=== PATIENT | male | born 1940 | race Caucasian/White ===

== ENCOUNTER → 2017-01-18 | Outpatient (CLI) | payer MEDICARE, OTHER | END | disposition home or self-care (01) | LOC: GMAB 10:51 | PROVIDERS: ATTEND Family Medicine | DX: E53.8 Deficiency of other specified B group vitamins (principal); D50.9 Iron deficiency anemia, unspecified; Z12.5 Encounter for screening for malignant neoplasm of prostate; I10 Essential (primary) hypertension | CPT/HCPCS: 82607; 82728; 83540; 83550; 84443; G0103 ==

== ENCOUNTER → 2017-04-12 | Outpatient (CLI) | payer MEDICARE, OTHER | END | disposition home or self-care (01) | LOC: GMAB 09:22 | PROVIDERS: ATTEND Family Medicine | DX: N18.4 Chronic kidney disease, stage 4 (severe) (principal) ==

== ENCOUNTER → 2017-04-20 | Outpatient (CLI) | payer MEDICARE, OTHER | END | disposition home or self-care (01) | LOC: GMAB 09:14 | PROVIDERS: ATTEND Family Medicine | DX: N18.4 Chronic kidney disease, stage 4 (severe) (principal) ==

== ENCOUNTER → 2017-06-01 | Outpatient (CLI) | payer MEDICARE, OTHER | END | disposition home or self-care (01) | LOC: GMAB 14:48 | PROVIDERS: ATTEND Family Medicine | DX: R97.20 Elevated prostate specific antigen [PSA] (principal) ==

== ENCOUNTER → 2017-06-21 | Outpatient (CLI) | payer MEDICARE, OTHER | END | disposition home or self-care (01) | LOC: GMAB 11:50 | PROVIDERS: ATTEND Family Medicine | DX: D50.9 Iron deficiency anemia, unspecified (principal) ==

== ENCOUNTER → 2017-08-16 | Outpatient (CLI) | payer MEDICARE, OTHER | END | disposition home or self-care (01) | LOC: GMAB 08:59 | PROVIDERS: ATTEND Family Medicine | DX: D50.9 Iron deficiency anemia, unspecified (principal); N18.4 Chronic kidney disease, stage 4 (severe); E53.8 Deficiency of other specified B group vitamins ==

== ENCOUNTER → 2017-09-14 | Outpatient (CLI) | payer MEDICARE, OTHER | END | disposition home or self-care (01) | LOC: GMAB 10:13 | PROVIDERS: ATTEND Family Medicine | DX: D50.9 Iron deficiency anemia, unspecified (principal); E53.8 Deficiency of other specified B group vitamins ==

== ENCOUNTER → 2017-10-11 | Outpatient (CLI) | payer MEDICARE, OTHER | LOC: GMAB 09:16 | PROVIDERS: ATTEND Family Medicine | DX: N18.4 Chronic kidney disease, stage 4 (severe) (principal); E53.8 Deficiency of other specified B group vitamins; D50.9 Iron deficiency anemia, unspecified ==

== ENCOUNTER → 2017-10-25 | Outpatient (CLI) | payer MEDICARE, OTHER | LOC: GMAB 10:32 | PROVIDERS: ATTEND Family Medicine | DX: D50.9 Iron deficiency anemia, unspecified (principal); E53.8 Deficiency of other specified B group vitamins ==

== ENCOUNTER → 2017-11-05 | Outpatient (CLI) | payer MEDICARE, OTHER | LOC: GMAB 09:32 | PROVIDERS: ATTEND Family Medicine | DX: D50.9 Iron deficiency anemia, unspecified (principal); E53.8 Deficiency of other specified B group vitamins; N18.4 Chronic kidney disease, stage 4 (severe) ==

== ENCOUNTER → 2017-11-22 | Outpatient (CLI) | payer MEDICARE, OTHER | LOC: GMAB 10:35 | PROVIDERS: ATTEND Family Medicine | DX: D50.9 Iron deficiency anemia, unspecified (principal); E53.8 Deficiency of other specified B group vitamins ==

== ENCOUNTER → 2017-12-27 | Outpatient (CLI) | payer MEDICARE, OTHER | LOC: GMAB 10:50 | PROVIDERS: ATTEND Family Medicine | DX: N18.4 Chronic kidney disease, stage 4 (severe) (principal) ==

== ENCOUNTER → 2018-01-11 | Outpatient (CLI) | payer MEDICARE, OTHER | LOC: GMAB 11:22 | PROVIDERS: ATTEND Family Medicine | DX: N18.4 Chronic kidney disease, stage 4 (severe) (principal) ==

== ENCOUNTER → 2018-02-07 | Outpatient (CLI) | payer MEDICARE, OTHER | LOC: GMAB 11:51 | PROVIDERS: ATTEND Family Medicine | DX: N18.4 Chronic kidney disease, stage 4 (severe) (principal) ==

== ENCOUNTER → 2018-02-22 | Outpatient (CLI) | payer MEDICARE, OTHER | LOC: GMAB 10:30 | PROVIDERS: ATTEND Family Medicine | DX: N18.4 Chronic kidney disease, stage 4 (severe) (principal) ==

== ENCOUNTER → 2018-04-04 | Outpatient (CLI) | payer MEDICARE, OTHER | LOC: GMA 11:24 | PROVIDERS: ATTEND Family Medicine | DX: D50.9 Iron deficiency anemia, unspecified (principal); E53.8 Deficiency of other specified B group vitamins ==

== ENCOUNTER → 2018-05-09 | Outpatient (CLI) | payer MEDICARE, OTHER | LOC: GMAE 11:39 | PROVIDERS: ATTEND Family Medicine | DX: N18.4 Chronic kidney disease, stage 4 (severe) (principal); D50.9 Iron deficiency anemia, unspecified; E53.8 Deficiency of other specified B group vitamins ==

== ENCOUNTER 2018-06-15 19:09 | Emergency (ER) | payer MEDICARE, OTHER ==
--- NOTE | 2018-06-15 19:29 | ED.PDOC ---
History of Present Illness - General Chief Complaint: Respiratory Problem Stated Complaint: SOB Time Seen by Provider: 06/15/18 19:28 Source: patient, family - Exam Limitations: no limitations - History of Present Illness Initial Comments: Alfredo Pitts 78 y/o male stated has been having gradual worsening of SOB for the last one week and weight gain of about 17 pounds.Has history of CHF went to see primary Md but advised to come here.Denies chest pains,cough,N/V,abdominal pains. Timing/Duration: 1 week Severity: moderate Improving Factors: nothing Worsening Factors: other - exertion Associated Symptoms: shortness of breath Allergies/Adverse Reactions: Allergies NO KNOWN ALLERGY Allergy (Verified 06/15/18 19:50) Home Medications: Ambulatory Orders Allopurinol [Zyloprim] 200 mg PO DAILY 01/28/14 Aspirin [Aspirin EC] 81 mg PO DAILY 01/28/14 Finasteride 5 mg PO DAILY 01/28/14 Furosemide 40 mg PO DAILY 01/28/14 Gabapentin 600 mg PO BID 01/28/14 Lisinopril 10 mg PO BID 01/28/14 Methylcobalamin [B-12] 1,000 mcg PO BID 01/28/14 Metoprolol Tartrate 25 mg PO BID 01/28/14 Simvastatin 20 mg PO BEDTIME 01/28/14 Tamsulosin [Flomax] 0.4 mg PO HS 01/28/14 Venlafaxine HCl [Venlafaxine HCl ER] 75 mg PO BID 01/28/14 Amlodipine Besylate 5 mg PO DAILY #0 tab 01/31/14 Furosemide [Lasix] 40 mg PO DAILY@1200 06/20/15 Albuterol Inhaler [Ventolin Hfa Inhaler] 1 puff INH TID #1 inh 06/22/15 Insulin Detemir [Levemir Pen] 75 units SUBCU BEDTIME #0 pen 06/22/15 Insulin Detemir [Levemir Pen] 90 units SUBCU DAILY #0 pen 06/22/15 Insulin Regular (Human) [Novolin R] 25 unit SUBCU AC #0 06/22/15 Potassium Chloride [Micro-K] 20 meq PO DAILY #60 cap 06/22/15 Review of Systems - Review of Systems Constitutional: States: no symptoms reported EENTM: States: no symptoms reported Respiratory: States: see HPI Cardiology: States: see HPI Gastrointestinal/Abdominal: States: no symptoms reported Genitourinary: States: no symptoms reported Musculoskeletal: States: no symptoms reported Skin: States: no symptoms reported Neurological: States: no symptoms reported Past Medical History (General) - Patient Medical History Hx Seizures: No Hx Stroke: No Hx Dementia: No Hx Asthma: No Hx of COPD: No Hx Cardiac Disorders: Yes Hx Congestive Heart Failure: Yes Hx Pacemaker: No Hx Hypertension: Yes Hx Thyroid Disease: No Hx Diabetes: Yes Hx Gastroesophageal Reflux: No Hx Renal Disease: Yes Hx Cancer: No Hx of HIV: No Hx Hepatitis C: No Hx MRSA: No Surgical History: other - left knee,cataract - Vaccination History Hx Tetanus, Diphtheria Vaccination: Yes Hx Influenza Vaccination: No Hx Pneumococcal Vaccination: No - Social History Hx Tobacco Use: No Hx Alcohol Use: No Hx Substance Use: No Hx Substance Use Treatment: No Hx Depression: No Hx Physical Abuse: No Hx Emotional Abuse: No Hx Suspected Abuse: No - Activities of Daily Living Patient Lives Alone: No - Female History Patient : No Family Medical History - Family History Mother Family History: Unknown Living Status: Unknown Hx Family Hypertension: Yes - multiple family members Hx Family Diabetes: Yes - multiple family members Physical Exam - Physical Exam General Appearance: Alert, Comfortable, Frail, No apparent distress Eye Exam: bilateral normal Ears, Nose, Throat: hearing grossly normal, normal ENT inspection, normal pharynx Neck: non-tender, full range of motion, supple, normal inspection Respiratory: chest non-tender, no respiratory distress, decreased breath sounds - bases w/minimal rales Cardiovascular/Chest: normal peripheral pulses, regular rate, rhythm, no murmur Peripheral Pulses: radial,right: 2+, radial,left: 2+ Gastrointestinal/Abdominal: non tender, soft Back Exam: no CVA tenderness, no vertebral tenderness Extremity: no calf tenderness, pedal edema Neurologic: alert, oriented x 3 Skin Exam: normal color, warm/dry Progress - Progress Progress: 06/15/18 22:24 Vital Signs - 8 hr 06/15/18 06/15/18 06/15/18 19:15 20:10 21:07 Temperature 97.6 F 97.6 F Pulse Rate [ 95 H 92 H 93 H monitor] Respiratory 20 20 20 Rate Blood Pressure 158/83 159/85 167/91 [Left Arm] O2 Sat by Pulse 99 97 97 Oximetry 06/16/18 00:50 Had Bumex 2mg.IV but urine output noted 400 cc - Results/Orders Results/Orders: 06/15/18 19:29 IV Care:Saline Lock per Protoc QSHIFT 06/15/18 19:30 EKG STAT 06/15/18 22:03 CARDIAC ENZYME GROUP Stat URINE CULTURE W/COLONY COUNT Stat Laboratory Results - last 24 hr 06/15/18 06/15/18 06/15/18 19:50 22:03 22:03 WBC 8.4 RBC 3.67 L Hgb 11.2 L Hct 35.0 L MCV 95.3 H MCH 30.5 MCHC 32.1 L RDW 18.5 H Plt Count 215 MPV 7.5 Absolute Neuts (auto) 6.30 Absolute Lymphs (auto) 1.00 Absolute Monos (auto) 0.60 Absolute Eos (auto) 0.30 Absolute Basos (auto) 0.10 Neutrophils % 75.8 Lymphocytes % 12.4 L Monocytes % 7.5 Eosinophils % 3.4 Basophils % 0.9 PT 9.9 INR 0.99 PTT (SP) 27.6 Sodium 137 Potassium 5.5 H Chloride 109 Carbon Dioxide 16 L Anion Gap 17.5 BUN 91 H Creatinine 5.93 H BUN/Creatinine Ratio 15.3 Random Glucose 176 H Serum Osmolality 306.1 H Calcium 7.3 L Phosphorus Magnesium 1.8 Total Bilirubin 0.4 Direct Bilirubin < 0.1 Indirect Bilirubin 0.3 AST 19 ALT 20 Alkaline Phosphatase 91 Creatine Kinase 228 H* CK-MB (CK-2) 10.4 H* 9.1 H* CK-MB (CK-2) % 4.56 H Troponin I 0.05 0.05 B-Natriuretic Peptide 427.0 H* Serum Total Protein 7.4 Albumin 3.6 Urine Color Yellow Urine Appearance Sl cloudy Urine pH 5.5 Ur Specific [place] 1.020 Urine Protein >=300 H Urine Glucose (UA) 100 H Urine Ketones Negative Urine Blood Small H Urine Nitrite Positive H Urine Bilirubin Negative Urine Urobilinogen 0.2 Ur Leukocyte Esterase Trace H Urine RBC 10-20 H Urine WBC 5-10 H Ur Epithelial Cells 3-5 Urine Bacteria 3+ H 06/15/18 23:18 WBC RBC Hgb Hct MCV MCH MCHC RDW Plt Count MPV Absolute Neuts (auto) Absolute Lymphs (auto) Absolute Monos (auto) Absolute Eos (auto) Absolute Basos (auto) Neutrophils % Lymphocytes % Monocytes % Eosinophils % Basophils % PT INR PTT (SP) Sodium Potassium Chloride Carbon Dioxide Anion Gap BUN Creatinine BUN/Creatinine Ratio Random Glucose Serum Osmolality Calcium Phosphorus 8.5 H Magnesium Total Bilirubin Direct Bilirubin Indirect Bilirubin AST ALT Alkaline Phosphatase Creatine Kinase CK-MB (CK-2) CK-MB (CK-2) % Troponin I B-Natriuretic Peptide Serum Total Protein Albumin Urine Color Urine Appearance Urine pH Ur Specific [place] Urine Protein Urine Glucose (UA) Urine Ketones Urine Blood Urine Nitrite Urine Bilirubin Urine Urobilinogen Ur Leukocyte Esterase Urine RBC Urine WBC Ur Epithelial Cells Urine Bacteria - EKG/XRAY/CT EKG: Sinus, nonspecific ST T wave Chg Comments: HR-95;1o av block XRAY: chest - no acute abnormalities noted Departure - Departure Clinical Impression: Diabetes 1.5, managed as type 1 Acute on chronic kidney failure Qualifiers: Acute renal failure type: unspecified Chronic kidney disease stage: stage 4 ( severe) Qualified Code(s): N17.9 - Acute kidney failure, unspecified Dyspnea Qualifiers: Dyspnea type: unspecified Qualified Code(s): R06.00 - Dyspnea, unspecified Time of Disposition: 00:52 Disposition: Transfer to Hospital Condition: Fair Departure Forms: ED Discharge - Pt. Copy, Patient Portal Self Enrollment Referrals: CHRISTOS FAITH MD [Primary Care Provider] - 1-2 Weeks Home Medications: Ambulatory Orders Allopurinol [Zyloprim] 200 mg PO DAILY 01/28/14 Aspirin [Aspirin EC] 81 mg PO DAILY 01/28/14 Finasteride 5 mg PO DAILY 01/28/14 Furosemide 40 mg PO DAILY 01/28/14 Gabapentin 600 mg PO BID 01/28/14 Lisinopril 10 mg PO BID 01/28/14 Methylcobalamin [B-12] 1,000 mcg PO BID 01/28/14 Metoprolol Tartrate 25 mg PO BID 01/28/14 Simvastatin 20 mg PO BEDTIME 01/28/14 Tamsulosin [Flomax] 0.4 mg PO HS 01/28/14 Venlafaxine HCl [Venlafaxine HCl ER] 75 mg PO BID 01/28/14 Amlodipine Besylate 5 mg PO DAILY #0 tab 01/31/14 Furosemide [Lasix] 40 mg PO DAILY@1200 06/20/15 Albuterol Inhaler [Ventolin Hfa Inhaler] 1 puff INH TID #1 inh 06/22/15 Insulin Detemir [Levemir Pen] 75 units SUBCU BEDTIME #0 pen 06/22/15 Insulin Detemir [Levemir Pen] 90 units SUBCU DAILY #0 pen 06/22/15 Insulin Regular (Human) [Novolin R] 25 unit SUBCU AC #0 06/22/15 Potassium Chloride [Micro-K] 20 meq PO DAILY #60 cap 06/22/15 Transfer to Outside Facility - Transfer Information Accepting Provider:: Dr.Al Torres-Hospitalist Accepting Facility: [facility] Reason for Transfer: 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
--- NOTE | 2018-06-15 19:45 | RAD ---
EXAM DESCRIPTION: Chest,1 View CLINICAL HISTORY:78 years Male, sob Comparison: June 22, 2015 FINDINGS: No focal lung consolidation. Elevation of the right hemidiaphragm. No pleural effusion. No pneumothorax. Cardiac and mediastinal silhouette is unremarkable. No acute osseous abnormality. Soft tissues are unremarkable. IMPRESSION: No acute findings. No focal lung consolidation. Nonspecific elevation the right hemidiaphragm. Electronically signed by: Alessio Damon MD 06/15/2018 7:43 PM CDT
[2018-06-15] MEDS ORDERED: BUMETANIDE 0.25 MG/ML VIAL IV ONE (20:16)
[2018-06-16 01:36] VITALS: BP 118/62; TEMP 97.3; O2SAT 94
== END 2018-06-16 01:10 | disposition short-term general hospital (02) ==
LOC: ER 19:09
DX: R06.00 Dyspnea, unspecified (principal); N17.9 Acute kidney failure, unspecified; E10.22 Type 1 diabetes mellitus with diabetic chronic kidney disease; I13.0 Hypertensive heart and chronic kidney disease with heart failure and stage 1 through stage 4 chronic kidney disease, or unspecified chronic kidney disease; N18.4 Chronic kidney disease, stage 4 (severe); I50.9 Heart failure, unspecified; Z79.4 Long term (current) use of insulin; Z79.899 Other long term (current) drug therapy; Z79.82 Long term (current) use of aspirin
CPT/HCPCS: 36415; 71045; 80048; 80076; 81001; 82550; 82553; 83880; 84100; 84484; 85025; 85610; 85730; 87086; 93005; J3490

== ENCOUNTER → 2018-06-22 | Outpatient (CLI) | payer MEDICARE, OTHER | LOC: GMAE 13:40 | PROVIDERS: ATTEND Family Medicine | DX: D50.9 Iron deficiency anemia, unspecified (principal); E53.8 Deficiency of other specified B group vitamins ==

== ENCOUNTER 2018-07-06 07:09 | Emergency (ER) | payer MEDICARE, OTHER ==
--- NOTE | 2018-07-06 07:32 | ED.PDOC ---
History of Present Illness - General Chief Complaint: General Time Seen by Provider: 07/06/18 07:19 Source: patient, family Exam Limitations: no limitations - History of Present Illness Initial Comments: PT IS A POOR HISTORIAN BUT HIS IS A GOOD HISTORIAN. AT 0700, PT INADVERTENTLY TOOK HIS 'S MORNING MEDS INSTEAD OF HIS OWN. HE DID NOT TAKE HIS OWN. C/O NAUSEA BUT DECLINES OFFER FOR NAUSEA MEDS. NO CP/SOB. HE DID NOT TAKE AN EXCESSIVE QUANTITY (OVERDOSE) OF MEDICATIONS; JUST TOOK 1 DOSE OF THE WRONG ONES. H/O DM, JUST STARTED DIALYSIS APPROX 1 WEEK AGO PETRA BURDEN, SAT IN [place]. HE TOOK: METOPROLOL ER 50 AMLODIPINE 10 LOSARTAN/HCTZ 100/25 METFORMIN 1000 HE DID NOT TAKE HIS MEDS, WHICH CONSIST OF: METOPROLOL 25 BID LISINOPRIL 40 TAMSULOSIN 0.4 SIMVASTATIN 20 VENLAFAXINE ALLOPURINOL FINASTERIDE ASA 81 LEVEMIR 50 INSULIN SLIDING SCALE SO HE TOOK MORE ANTIHYPERTENSIVES THAN USUAL - WILL MONITOR BP. HE TOOK METFORMIN INSTEAD OF INSULIN - WILL MONITOR BLOOD GLUCOSE. HE MISSED A ONE TIME DOSE OF HIS STATIN, EFFEXOR, ALLOPURINOL, FINASTERIDE, ASA 81. WE ARE CALLING POISON CONTROL FOR COMPLETENESS. Timing/Duration: other - [employer] Severity: mild Improving Factors: nothing Worsening Factors: nothing Associated Symptoms: nausea/vomiting Allergies/Adverse Reactions: Allergies NO KNOWN ALLERGY Allergy (Verified 06/15/18 19:50) Home Medications: Ambulatory Orders Allopurinol [Zyloprim] 100 mg PO DAILY 01/28/14 Aspirin [Aspirin EC] 81 mg PO DAILY 01/28/14 Finasteride 5 mg PO DAILY 01/28/14 Lisinopril 40 mg PO BID 01/28/14 Metoprolol Tartrate 25 mg PO BID 01/28/14 Simvastatin 20 mg PO BEDTIME 01/28/14 Tamsulosin [Flomax] 0.4 mg PO HS 01/28/14 Venlafaxine HCl [Venlafaxine HCl ER] 75 mg PO BID 01/28/14 Insulin Detemir [Levemir Pen] 50 units SUBCU BEDTIME 07/06/18 Review of Systems - Review of Systems Constitutional: Denies: chills, diaphoresis, fever, malaise EENTM: Denies: blurred vision, double vision, throat pain Respiratory: Denies: cough, short of breath Cardiology: Denies: chest pain, palpitations Gastrointestinal/Abdominal: States: nausea. Denies: abdominal pain, constipation, diarrhea, vomiting Genitourinary: Denies: dysuria, hematuria Musculoskeletal: States: no symptoms reported Skin: States: no symptoms reported Neurological: States: no symptoms reported. Denies: headache, weakness Endocrine: States: no symptoms reported. Denies: excessive sweating Hematologic/Lymphatic: States: no symptoms reported All other Systems: Reviewed and Negative Past Medical History (General) - Patient Medical History Hx Seizures: No Hx Stroke: No Hx Dementia: No Hx Asthma: No Hx of COPD: No Hx Cardiac Disorders: Yes Hx Congestive Heart Failure: Yes Hx Pacemaker: No Hx Hypertension: Yes Hx Thyroid Disease: No Hx Diabetes: Yes Hx Gastroesophageal Reflux: No Hx Renal Disease: Yes Hx Cancer: No Hx of HIV: No Hx Hepatitis C: No Hx MRSA: No - Vaccination History Hx Tetanus, Diphtheria Vaccination: Yes Hx Influenza Vaccination: No Hx Pneumococcal Vaccination: No - Social History Hx Tobacco Use: No Hx Alcohol Use: No Hx Substance Use: No Hx Substance Use Treatment: No Hx Depression: No Hx Physical Abuse: No Hx Emotional Abuse: No Hx Suspected Abuse: No - Female History Patient : No Family Medical History - Family History Mother Family History: Unknown Living Status: Unknown Hx Family Hypertension: Yes - multiple family members Hx Family Diabetes: Yes - multiple family members Physical Exam - Physical Exam General Appearance: Alert, Obese Eye Exam: bilateral normal Ears, Nose, Throat: hearing grossly normal, normal ENT inspection Neck: non-tender, full range of motion, supple Respiratory: lungs clear, normal breath sounds, no respiratory distress Cardiovascular/Chest: normal peripheral pulses, regular rate, rhythm, no murmur Peripheral Pulses: radial,right: 2+, radial,left: 2+ Gastrointestinal/Abdominal: normal bowel sounds, non tender, soft, no organomegaly, no pulsatile mass Back Exam: normal inspection, no CVA tenderness Extremity: normal range of motion, normal inspection 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 HE HAS A PORT ON THE RIGHT SIDE OF HIS CHEST. Lymphatic: no adenopathy Progress - Progress Progress: 07/06/18 07:32 INITIAL SBP 190'S, NOW 160'S. SO HE TOOK MORE ANTIHYPERTENSIVES THAN USUAL - WILL MONITOR BP. HE TOOK METFORMIN INSTEAD OF INSULIN - WILL MONITOR BLOOD GLUCOSE. HE MISSED A ONE TIME DOSE OF HIS STATIN, EFFEXOR, ALLOPURINOL, FINASTERIDE, ASA 81. WE ARE CALLING POISON CONTROL FOR COMPLETENESS. POISON CONTROL HAD NO SERIOUS CONCERNS; JUST MONITOR HIS BP AND GLUCOSE. 07/06/18 07:39 EKG SINUS W/ PVC AND PROLONGED QT INTERVAL. 07/06/18 08:43 MONITORING BP AND GLUCOSE: BP 130'S. GLUCOSE 226. VSS. NO CONCERNS AT PRESENT. PT IS STABLE. 07/06/18 10:17 NO UNEXPECTED OR CONCERNING LABS ON CBC, CMP, UA. CR ELEVATED EXPECTED. REPEAT GLUCOSE 271 - PERMISSIVE HYPERGLYCEMIA IN THE ER TO AVOID ACUTE HYPOGLYCEMIA. NO HYPOTENSION. PT WAS MONITORED IN ER FOR APPROX 3 HRS AND THERE WERE NO MEDICAL CONCERNS. SAFE TO DC TO HOME WITH HIS . SHE IS HIS DIRECTOR BEHAVIORAL HEALTH AND I INSTRUCTED HER TO CHECK HIS BP AND GLUCOSE 4 X TODAY. Departure - Departure Clinical Impression: IDDM (insulin dependent diabetes mellitus) Accidental medication error Qualifiers: Encounter type: initial encounter Qualified Code(s): T50.901A - Poisoning by unspecified drugs, medicaments and biological substances, accidental ( unintentional), initial encounter CRF (chronic renal failure) Qualifiers: Chronic kidney disease stage: stage 4 (severe) Qualified Code(s): N18.4 - Chronic kidney disease, stage 4 (severe) Disposition: Discharge to Home or Self Care Condition: Fair Departure Forms: ED Discharge - Pt. Copy, Patient Portal Self Enrollment Instructions: Medication Safety, Adult Diet: resume usual diet Activity: increase activity as tolerated Referrals: CHRISTOS FAITH MD [Primary Care Provider] - 1-5 Days Home Medications: Ambulatory Orders Allopurinol [Zyloprim] 100 mg PO DAILY 01/28/14 Aspirin [Aspirin EC] 81 mg PO DAILY 01/28/14 Finasteride 5 mg PO DAILY 01/28/14 Lisinopril 40 mg PO BID 01/28/14 Metoprolol Tartrate 25 mg PO BID 01/28/14 Simvastatin 20 mg PO BEDTIME 01/28/14 Tamsulosin [Flomax] 0.4 mg PO HS 01/28/14 Venlafaxine HCl [Venlafaxine HCl ER] 75 mg PO BID 01/28/14 Insulin Detemir [Levemir Pen] 50 units SUBCU BEDTIME 07/06/18 Additional Instructions: Please be cautious with medications. Perhaps label the bottle tops with a colored marker to distinguish which are his. Please check his blood sugar 4 times throughout the rest of the day to ensure it does not run too high or too low.
[2018-07-06 07:36] VITALS: TEMP 98.6
[2018-07-06 10:34] VITALS: BP 205/105; O2SAT 96
== END 2018-07-06 10:34 | disposition home or self-care (01) ==
LOC: ER 07:09
DX: T38.3X1A Poisoning by insulin and oral hypoglycemic [antidiabetic] drugs, accidental (unintentional), initial encounter (principal); T46.1X1A Poisoning by calcium-channel blockers, accidental (unintentional), initial encounter; T47.7X1A Poisoning by emetics, accidental (unintentional), initial encounter; R11.0 Nausea; E11.22 Type 2 diabetes mellitus with diabetic chronic kidney disease; N18.4 Chronic kidney disease, stage 4 (severe); I50.9 Heart failure, unspecified; I12.9 Hypertensive chronic kidney disease with stage 1 through stage 4 chronic kidney disease, or unspecified chronic kidney disease; Z79.4 Long term (current) use of insulin; Z99.2 Dependence on renal dialysis; Z79.899 Other long term (current) drug therapy; Z79.82 Long term (current) use of aspirin

== ENCOUNTER 2018-07-09 12:05 | Emergency (ER) | payer MEDICARE, OTHER ==
--- NOTE | 2018-07-09 12:16 | ED.PDOC ---
History of Present Illness - General Chief Complaint: General Time Seen by Provider: 07/09/18 12:12 Source: patient, EMS Exam Limitations: no limitations - History of Present Illness Initial Comments: Patient comes in todaypatient comes in today for not feeling well. Patient was going to take his normal dialysis when he told the nurses there that he wasn't feeling well. After taking his vital signs they noted his heart rate was in the 140s and they called EMS. On arrival EMS states he had atrial fibrillation with rapid ventricular response at 131. However, prior to receiving any medication converted back to normal sinus rhythm with a heart rate in the 70s. Patient states since his heart rate has decreased he does feel better. On questioning, patient cannot quantify what he was feeling earlier. Patient states he just didn't feel well but denies any pain, fever, chills, cough or cold symptoms. Patient has a past medical history for hypertension, hyperlipidemia, diabetes mellitus, and chronic renal failure. Patient states he 's never had a heart history and does not believe he's been in atrial fibrillation. Patient has never had a stroke, emphysema, asthma, or other medical problems. Patient is very stoic and surly and is a difficult historian. Timing/Duration: 1-3 hours Severity: moderate Improving Factors: nothing Worsening Factors: nothing Associated Symptoms: weakness Allergies/Adverse Reactions: Allergies NO KNOWN ALLERGY Allergy (Verified 06/15/18 19:50) Home Medications: Ambulatory Orders Allopurinol [Zyloprim] 100 mg PO DAILY 01/28/14 Aspirin [Aspirin EC] 81 mg PO DAILY 01/28/14 Finasteride 5 mg PO DAILY 01/28/14 Lisinopril 40 mg PO DAILY 01/28/14 Metoprolol Tartrate 25 mg PO BID 01/28/14 Simvastatin 20 mg PO BEDTIME 01/28/14 Tamsulosin [Flomax] 0.4 mg PO HS 01/28/14 Venlafaxine HCl [Venlafaxine HCl ER] 75 mg PO DAILY 01/28/14 Insulin Detemir [Levemir Pen] 60 units SUBCU BID 07/06/18 B-Complex W/ C & Folic Acid [Renal-Jama[place] 0.8 mg] 1 tablet PO DAILY 07/09/18 Insulin Lispro (Human) [Humalog] 5 units SUBCU BID 07/09/18 Quetiapine Fumarate [Quetiapine Fumarate] 50 mg PO BID 07/09/18 Trazodone HCl 50 mg PO BEDTIME 07/09/18 Review of Systems - Review of Systems Constitutional: States: malaise, weakness EENTM: States: no symptoms reported. Denies: eye pain, ear pain, nose pain, nose congestion, throat pain Respiratory: States: no symptoms reported. Denies: cough, short of breath, wheezing Cardiology: States: palpitations Gastrointestinal/Abdominal: States: no symptoms reported. Denies: abdominal pain, nausea, vomiting Genitourinary: States: no symptoms reported Musculoskeletal: States: no symptoms reported Skin: States: no symptoms reported Past Medical History (General) - Patient Medical History Hx Seizures: No Hx Stroke: No Hx Dementia: No Hx Asthma: No Hx of COPD: No Hx Cardiac Disorders: Yes Hx Congestive Heart Failure: Yes Hx Pacemaker: No Hx Hypertension: Yes Hx Thyroid Disease: No Hx Diabetes: Yes Hx Gastroesophageal Reflux: No Hx Renal Disease: Yes Hx Cancer: No Hx of HIV: No Hx Hepatitis C: No Hx MRSA: No - Vaccination History Hx Tetanus, Diphtheria Vaccination: Yes Hx Influenza Vaccination: No Hx Pneumococcal Vaccination: No - Social History Hx Tobacco Use: No Hx Alcohol Use: No Hx Substance Use: No Hx Substance Use Treatment: No Hx Depression: No Hx Physical Abuse: No Hx Emotional Abuse: No Hx Suspected Abuse: No - Female History Patient : No Family Medical History - Family History Mother Family History: Unknown Living Status: Unknown Hx Family Hypertension: Yes - multiple family members Hx Family Diabetes: Yes - multiple family members Physical Exam - Physical Exam General Appearance: Alert, No apparent distress Eye Exam: bilateral normal Ears, Nose, Throat: hearing grossly normal, normal ENT inspection, normal pharynx Neck: non-tender, full range of motion, supple, normal inspection Respiratory: chest non-tender, lungs clear, normal breath sounds, no respiratory distress Cardiovascular/Chest: normal peripheral pulses, regular rate, rhythm, no edema, no gallop, no JVD, no murmur Peripheral Pulses: radial,right: 2+, radial,left: 2+ Gastrointestinal/Abdominal: normal bowel sounds, non tender, soft Back Exam: no CVA tenderness, no vertebral tenderness Extremity: non-tender, no pedal edema Neurologic: alert, oriented x 3 Progress - Progress Progress: patient is feeling better. 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 He declines to accept transfer at this time as he feels that he does not require emergent evaluation. Requests for us to recheck enzymes again in several hours. If it is trending up then we are to transfer him, if same or decrease we should discharge on Toprol XL 25 mg and have him follow up as outpatient. 07/09/18 13:39 07/09/18 13:52 patient will miss dialysis secondary to ER stay. called and spoke to Nephrology through [facility] at dialysis and Dr. Burnham feelsl like if he is not fluid overloaded he can wait until Wednesday. They will call and arrange a time with family. and children understand if he goes home and then has swelling , SOB they should come back in and have him emergently transferred for dialysis. 07/09/18 16:27 recheck was 0.9. will discharge home and have him follow up with cardiology as planned next week. Return to ER for chest pain, return of increase in heart rate, shortness of breath - Results/Orders Results/Orders: 07/09/18 12:15 EKG STAT Laboratory Results WBC 12.8 K/mm3 (4.8-10.8) H 07/09/18 12:21 RBC 4.00 M/mm3 (4.70-6.10) L 07/09/18 12:21 Hgb 11.7 gm/dL (14.0-18.0) L 07/09/18 12:21 Hct 36.6 % (42.0-52.0) L 07/09/18 12:21 MCV 91.5 fl (80.0-94.0) 07/09/18 12:21 MCH 29.2 pg (27.0-31.0) 07/09/18 12:21 MCHC 32.1 g/dL (33.0-37.0) L 07/09/18 12:21 RDW 16.8 % (11.5-14.5) H 07/09/18 12:21 Plt Count 214 K/mm3 (130-400) 07/09/18 12:21 MPV 9.0 fl (7.40-10.4) 07/09/18 12:21 Absolute Neuts (auto) 10.40 K/uL (1.8-6.8) H 07/09/18 12:21 Absolute Lymphs (auto) 1.20 K/uL (1.0-3.4) 07/09/18 12:21 Absolute Monos (auto) 0.80 K/uL (0.2-0.8) 07/09/18 12:21 Absolute Eos (auto) 0.20 K/uL (0.0-0.4) 07/09/18 12:21 Absolute Basos (auto) 0.10 K/uL (0.0-0.1) 07/09/18 12:21 Neutrophils % 81.7 % (42.0-78.0) H 07/09/18 12:21 Lymphocytes % 9.5 % (20.0-50.0) L 07/09/18 12:21 Monocytes % 6.5 % (2.0-9.0) 07/09/18 12:21 Eosinophils % 1.9 % (1.0-5.0) 07/09/18 12:21 Basophils % 0.4 % (0.0-2.0) 07/09/18 12:21 PT 9.9 SECONDS (9.0-10.9) 07/09/18 12:21 INR 0.99 (0.9-1.15) 07/09/18 12:21 PTT (SP) 22.7 SECONDS (21.8-31.6) 07/09/18 12:21 Sodium 134 mmol/L (135-145) L 07/09/18 12:21 Potassium 3.3 mmol/L (3.6-5.0) L 07/09/18 12:21 Chloride 95 mmol/L (101-111) L 07/09/18 12:21 Carbon Dioxide 27 mmol/L (21-31) 07/09/18 12:21 Anion Gap 15.3 (12-18) 07/09/18 12:21 BUN 35 mg/dL (7-18) H 07/09/18 12:21 Creatinine 4.15 mg/dL (0.6-1.3) H 07/09/18 12:21 BUN/Creatinine Ratio 8.4 (10-20) L 07/09/18 12:21 Random Glucose 213 mg/dL (70-105) H 07/09/18 12:21 Serum Osmolality 282.6 mOsm/L (275-295) 07/09/18 12:21 Calcium 8.1 mg/dL (8.4-10.2) L 07/09/18 12:21 Magnesium 1.6 mg/dL (1.8-2.5) L 07/09/18 12:21 Creatine Kinase 218 IU/L (38-174) H* 07/09/18 12:21 CK-MB (CK-2) 4.9 ng/mL (0.0-4.4) H* 07/09/18 12:21 CK-MB (CK-2) % 2.25 % (0.0-3.5) 07/09/18 12:21 Troponin I 0.08 ng/mL (0.01-0.05) H* 07/09/18 12:21 EKG NSR with prolinged T and incomplete RBBB Departure - Departure Clinical Impression: Atrial fibrillation Qualifiers: Atrial fibrillation type: unspecified Qualified Code(s): I48.91 - Unspecified atrial fibrillation Disposition: Discharge to Home or Self Care Departure Forms: ED Discharge - Pt. Copy, Patient Portal Self Enrollment Referrals: CHRISTOS FAITH MD [Primary Care Provider] - 1-2 Weeks Home Medications: Ambulatory Orders Allopurinol [Zyloprim] 100 mg PO DAILY 01/28/14 Aspirin [Aspirin EC] 81 mg PO DAILY 01/28/14 Finasteride 5 mg PO DAILY 01/28/14 Lisinopril 40 mg PO DAILY 01/28/14 Metoprolol Tartrate 25 mg PO BID 01/28/14 Simvastatin 20 mg PO BEDTIME 01/28/14 Tamsulosin [Flomax] 0.4 mg PO HS 01/28/14 Venlafaxine HCl [Venlafaxine HCl ER] 75 mg PO DAILY 01/28/14 Insulin Detemir [Levemir Pen] 60 units SUBCU BID 07/06/18 B-Complex W/ C & Folic Acid [Renal-[place] 0.8 mg] 1 tablet PO DAILY 07/09/18 Insulin Lispro (Human) [Humalog] 5 units SUBCU BID 07/09/18 Quetiapine Fumarate [Quetiapine Fumarate] 50 mg PO BID 07/09/18 Trazodone HCl 50 mg PO BEDTIME 07/09/18 Additional Instructions: patient to call cardiology on Wednesday and arrange follow up. Return to ER for chest pain, shortness of breath, or increased heart rate
--- NOTE | 2018-07-09 12:34 | RAD ---
EXAM DESCRIPTION: Chest,1 View CLINICAL HISTORY: 78 years Male, Afib new onset COMPARISON: June 15, 2018. FINDINGS: Heart size appears upper normal, although accentuated by technique. There appears to be calcification in the aortic arch. Slight patient rotation to the left. The lungs appear essentially clear and unchanged compared to the previous study considering technical differences, with note of better definition of the right hemidiaphragm. Since the last exam, there has been placement of a double-lumen right jugular catheter, the tip of which overlies the lower superior vena cava. No gross evidence of pneumothorax on this upright portable film. IMPRESSION: No evidence of acute cardiopulmonary disease. Status post central venous catheter placement. Electronically signed by: Dimitri Maguire MD 07/09/2018 12:33 PM COPY EDITOR
[2018-07-09] MEDS ORDERED: ATORVASTATIN 20 MG TAB PO ONE (12:54)
[2018-07-09] MEDS ORDERED: METOPROLOL SUCCINATE XL 25 MG TAB PO ONE (12:54)
[2018-07-09] MEDS ORDERED: ASPIRIN (CHEWABLE) 81 MG TAB PO ONE (12:54)
[2018-07-09] MEDS ORDERED: HEPARIN SODIUM (PORCINE) 5,000 U/ML VIAL IV ONE (12:54)
[2018-07-09 17:04] VITALS: BP 173/91; O2SAT 96
[2018-07-09 17:07] VITALS: TEMP 98
== END 2018-07-09 16:35 | disposition home or self-care (01) ==
LOC: ER 12:05
DX: I48.91 Unspecified atrial fibrillation (principal); N18.6 End stage renal disease; I13.2 Hypertensive heart and chronic kidney disease with heart failure and with stage 5 chronic kidney disease, or end stage renal disease; E11.9 Type 2 diabetes mellitus without complications; I50.9 Heart failure, unspecified; E78.5 Hyperlipidemia, unspecified; Z99.2 Dependence on renal dialysis; Z79.82 Long term (current) use of aspirin; Z79.899 Other long term (current) drug therapy; Z79.4 Long term (current) use of insulin
CPT/HCPCS: 36415; 71045; 80048; 82550; 82553; 84484; 85025; 85610; 85730; 93005; J1644

== ENCOUNTER 2018-07-14 23:53 | Emergency (ER) | payer MEDICARE, OTHER ==
[2018-07-15] MEDS ORDERED: SODIUM CHLORIDE 0.9% (FLUSH) 10 ML SYG IV PRN (00:19)
--- NOTE | 2018-07-15 00:30 | ED.PDOC ---
History of Present Illness - General Chief Complaint: Respiratory Problem Stated Complaint: short of breath Time Seen by Provider: 07/15/18 00:00 Source: patient, family - Exam Limitations: no limitations - History of Present Illness Initial Comments: Alfredo Pitts 78 y/o male with history of ESRD-HD,DM2 on insulin brought by EMS to ER with SOB,not feeling well,unable to lay flat, but no chest pains, fever cough.Seen here last week with [facility] cardiac enzymes were slightly elevated Trop-0.09 x2 and also called up senior environmental consultant but since his cardiac enzymes no further elevation of troponin no transfer made patient sent home..Had just started hemodialysis thru [facility] cath 2 weeks ago had one done today and goes 3 x a week [facility].EMS stated Sao2-97 % RA on the ambulance no signs of distress. Timing/Duration: 1 week, intermittent Severity: moderate Activities at Onset: none Possible Cause: occasional episodes, other - renal failure and chf Improving Factors: nothing Worsening Factors: nothing Associated Symptoms: other - see hpi Respiratory Risk Factors: other - ESRD-HD,renal failure Allergies/Adverse Reactions: Allergies NO KNOWN ALLERGY Allergy (Verified 06/15/18 19:50) Home Medications: Ambulatory Orders Allopurinol [Zyloprim] 100 mg PO DAILY 01/28/14 Aspirin [Aspirin EC] 81 mg PO DAILY 01/28/14 Finasteride 5 mg PO DAILY 01/28/14 Lisinopril 40 mg PO DAILY 01/28/14 Metoprolol Tartrate 25 mg PO BID 01/28/14 Simvastatin 20 mg PO BEDTIME 01/28/14 Tamsulosin [Flomax] 0.4 mg PO HS 01/28/14 Venlafaxine HCl [Venlafaxine HCl ER] 75 mg PO DAILY 01/28/14 Insulin Detemir [Levemir Pen] 60 units SUBCU BID 07/06/18 B-Complex W/ C & Folic Acid [Renal-[place] 0.8 mg] 1 tablet PO DAILY 07/09/18 Insulin Lispro (Human) [Humalog] 5 units SUBCU BID 07/09/18 Metoprolol Succinate [Toprol Xl] 25 mg PO DAILY #30 tab 07/09/18 Quetiapine Fumarate [Quetiapine Fumarate] 50 mg PO BID 07/09/18 Trazodone HCl 50 mg PO BEDTIME 07/09/18 Multiple Vitamins W/ Minerals [Dialyvite 800/Ultra D] 1 tab PO DAILY 07/15/18 Temazepam [Restoril] 15 mg PO BEDTIME 07/15/18 Review of Systems - Review of Systems Constitutional: States: no symptoms reported EENTM: States: no symptoms reported Respiratory: States: see HPI Cardiology: States: no symptoms reported Gastrointestinal/Abdominal: States: no symptoms reported Genitourinary: States: see HPI Musculoskeletal: States: no symptoms reported Skin: States: no symptoms reported Neurological: States: no symptoms reported Past Medical History (General) - Patient Medical History Hx Seizures: No Hx Stroke: No Hx Dementia: Yes Hx Asthma: No Hx of COPD: No Hx Cardiac Disorders: Yes Hx Congestive Heart Failure: Yes Hx Pacemaker: No Hx Hypertension: Yes Hx Thyroid Disease: No Hx Diabetes: Yes Hx Gastroesophageal Reflux: No Hx Renal Disease: Yes - on dialysis Hx Cancer: No Hx of HIV: No Hx Hepatitis C: No Hx MRSA: No Surgical History: other - left knee,cataract - Vaccination History Hx Tetanus, Diphtheria Vaccination: Yes Hx Influenza Vaccination: No Hx Pneumococcal Vaccination: No - Social History Hx Tobacco Use: No Hx Alcohol Use: No Hx Substance Use: No Hx Substance Use Treatment: No Hx Depression: No Hx Physical Abuse: No Hx Emotional Abuse: No Hx Suspected Abuse: No - Female History Patient is a Female of Child Bearing Age (10 -59 yrs old): No Patient : No Family Medical History - Family History Mother Family History: Unknown Living Status: Unknown Hx Family Hypertension: Yes - multiple family members Hx Family Diabetes: Yes - multiple family members Physical Exam - Physical Exam General Appearance: Alert, Comfortable, No apparent distress Eyes, Ears, Nose, Throat Exam: normal ENT inspection Neck: full range of motion, supple, normal inspection Respiratory: chest non-tender, lungs clear, normal breath sounds, no respiratory distress Cardiovascular/Chest: normal peripheral pulses, no gallop, no murmur, irregularly irregular Peripheral Pulses: radial,right: 2+, radial,left: 2+ Gastrointestinal/Abdominal: non tender, soft, no organomegaly Extremity: normal range of motion, non-tender, no pedal edema, no calf tenderness Neurologic: alert, oriented x 3 Skin Exam: normal color, warm/dry Progress - Progress Progress: 07/15/18 00:43 Vital Signs - 8 hr 07/15/18 07/15/18 00:08 00:36 Temperature 97.8 F Pulse Rate [ 67 left] Respiratory 20 20 Rate Blood Pressure 189/93 [left] O2 Sat by Pulse 100 Oximetry 07/15/18 04:31 He was agitated and given 2 doses of haldol,Lorazepam 1mg iv,Alprazolam 2 mg po w/c calmed him down. - Results/Orders Results/Orders: Vital Signs - 8 hr 07/15/18 07/15/18 07/15/18 00:08 00:36 01:25 Temperature 97.8 F 97.8 F Pulse Rate [ 67 76 left] Respiratory 20 20 20 Rate Blood Pressure 189/93 177/63 [left] O2 Sat by Pulse 100 99 Oximetry 07/15/18 07/15/18 07/15/18 02:30 02:58 03:21 Temperature Pulse Rate [ 92 H 92 H 88 left] Respiratory 20 20 Rate Blood Pressure 175/71 185/87 [left] O2 Sat by Pulse 99 99 Oximetry 07/15/18 03:48 Temperature Pulse Rate [ 63 left] Respiratory 20 Rate Blood Pressure 171/62 [left] O2 Sat by Pulse 96 Oximetry - EKG/XRAY/CT EKG: Atrial, Fibrillation Comments: HR-72 XRAY: chest - mild pulmonary congestion Departure - Departure Clinical Impression: ESRD (end stage renal disease) on dialysis, Diabetes 1.5, managed as type 1, Hypokalemia Congestive heart failure (CHF) Qualifiers: Heart failure type: unspecified Heart failure chronicity: unspecified Qualified Code(s): I50.9 - Heart failure, unspecified Time of Disposition: 04:26 Disposition: Transfer to Hospital Condition: Fair Departure Forms: Patient Portal Self Enrollment Referrals: CHRISTOS FAITH MD [Primary Care Provider] - 1-2 Weeks Home Medications: Ambulatory Orders Allopurinol [Zyloprim] 100 mg PO DAILY 01/28/14 Aspirin [Aspirin EC] 81 mg PO DAILY 01/28/14 Finasteride 5 mg PO DAILY 01/28/14 Lisinopril 40 mg PO DAILY 01/28/14 Metoprolol Tartrate 25 mg PO BID 01/28/14 Simvastatin 20 mg PO BEDTIME 01/28/14 Tamsulosin [Flomax] 0.4 mg PO HS 01/28/14 Venlafaxine HCl [Venlafaxine HCl ER] 75 mg PO DAILY 01/28/14 Insulin Detemir [Levemir Pen] 60 units SUBCU BID 07/06/18 B-Complex W/ C & Folic Acid [Renal-[place] 0.8 mg] 1 tablet PO DAILY 07/09/18 Insulin Lispro (Human) [Humalog] 5 units SUBCU BID 07/09/18 Metoprolol Succinate [Toprol Xl] 25 mg PO DAILY #30 tab 07/09/18 Quetiapine Fumarate [Quetiapine Fumarate] 50 mg PO BID 07/09/18 Trazodone HCl 50 mg PO BEDTIME 07/09/18 Multiple Vitamins W/ Minerals [Dialyvite 800/Ultra D] 1 tab PO DAILY 07/15/18 Temazepam [Restoril] 15 mg PO BEDTIME 07/15/18 Transfer to Outside Facility - Transfer Information Accepting Provider:: Dr. Guerrero-Hospitalist Accepting Facility: [facility] Reason for Transfer: required specialist not available - senior environmental consultant
[2018-07-15] MEDS ORDERED: hydrALAZINE HCl 20 MG/ML VIAL IV ONE (00:33)
--- NOTE | 2018-07-15 00:33 | RAD ---
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 Mild pulmonary edema. No large pleural effusion. Mild cardiomegaly. Impression: Mild pulmonary edema. Electronically signed by: Bora Jose MD 07/15/2018 12:32 AM [employer] WORK[employer] SUPERVISOR
[2018-07-15] MEDS ORDERED: HALOPERIDOL LACTATE INJ 5 MG/ML VIAL IM ONE ×3 (01:19→02:39)
[2018-07-15] MEDS ORDERED: diphenhydrAMINE HCL 50 MG/ML VIAL IV ONE ×2 (01:21)
[2018-07-15] MEDS ORDERED: POTASSIUM CHLORIDE ELIXIR 20 MEQ/15 ML UD PO ONE (01:22)
[2018-07-15] MEDS ORDERED: ASPIRIN (CHEWABLE) 81 MG TAB PO ONE (02:16)
[2018-07-15] MEDS ORDERED: ALPRAZolam 0.25 MG TAB PO ONE (02:39)
[2018-07-15 03:49] VITALS: O2SAT 96
[2018-07-15 04:56] VITALS: BP 144/63; TEMP 97.1
== END 2018-07-15 04:50 | disposition short-term general hospital (02) ==
LOC: ER 23:53
DX: I50.9 Heart failure, unspecified (principal); E10.22 Type 1 diabetes mellitus with diabetic chronic kidney disease; N18.6 End stage renal disease; I13.2 Hypertensive heart and chronic kidney disease with heart failure and with stage 5 chronic kidney disease, or end stage renal disease; Z99.2 Dependence on renal dialysis; F03.90 Unspecified dementia, unspecified severity, without behavioral disturbance, psychotic disturbance, mood disturbance, and anxiety; Z79.82 Long term (current) use of aspirin; Z79.4 Long term (current) use of insulin; Z79.899 Other long term (current) drug therapy
CPT/HCPCS: 71045; 80048; 80076; 82550; 82553; 82948; 83605; 83880; 84484; 85025; 85610; 85730; 93005; J0360; J1200; J1630; J2060

== ENCOUNTER 2018-08-10 14:35 | Inpatient (IN) | payer OTHER ==
--- NOTE | 2018-08-10 15:14 | HP ---
SUPERVISING PHYSICIAN: Nany Norton MD REASON FOR HOSPICE ADMISSION: 1. Endstage renal disease. 2. Severe confusion and dementia. HISTORY OF PRESENT ILLNESS: Mr. Pitts is a 78-year-old male patient who initially presented to [facility] on 07/31/18 after he had a same- level fall and had some agitation, dementia and endstage renal disease. He was started on dialysis. He progressed over the hospitalization and was started on dialysis with a temporary dialysis catheter and scheduled on Wednesday//Wednesday. He also had a non-ST elevated myocardial infarction which they feel like caused his fall and worsening of his dementia resulting in agitation. Due to his health and past medical history, cardiology suggested medical treatment only. Last Wednesday, he had his last dialysis, but became agitated over the weekend and pulled out all his IV access and catheter for dialysis. The patient's family decided today that due to the patient's worsening agitation and poor prognosis, the best course of care for the patient is palliative and to put him on inpatient hospice care given that he had not had dialysis since last Wednesday. He was accepted for inpatient hospice and transferred via ambulance from [facility] to [facility] for hospice inpatient care. His history and physical are obtained from past hospitalization records as the patient is very confused and no family is available at time of admission. PAST MEDICAL HISTORY: 1. Dementia. 2. Endstage renal disease. 3. Hypertension. 4. Type 2 diabetes. 5. Peripheral neuropathy. 6. Congestive heart failure. 7. Gout. 8. Benign prostatic hypertrophy. PAST SURGICAL HISTORY: 1. Left total knee arthroplasty. CURRENT MEDICATIONS: Please list of medications provided by hospice care for an updated and verified list. ALLERGIES: NO KNOWN DRUG ALLERGIES. FAMILY HISTORY: Noncontributory. SOCIAL HISTORY: The patient is not a smoker and does not use alcohol or illicit drugs. REVIEW OF SYSTEMS: Unobtainable due to the patient's severe dementia and agitation. PHYSICAL EXAMINATION: VITAL SIGNS: Temperature 98.1. Pulse 60. Blood pressure 150/68. Respirations 20. Saturation 99% on room air. GENERAL: The patient appears to be in no acute distress, but he is also agitated and very verbally abusive to staff as well as very uncooperative on initial assessment. RESPIRATORY: Lungs clear to auscultation bilaterally, diminished towards the bases. CARDIOVASCULAR: Regular rate and rhythm. ABDOMEN: Soft, obese, nontender. Positive bowel sounds. EXTREMITIES: There is 1+ edema to both upper and lower extremities. NEUROLOGIC: The patient is agitated. He moves all extremities ad diamante. He is confused. He is alert, but is very combative. PSYCHIATRIC: He is very disheveled, angry, hostile and inadequate thought process. LABORATORY: No laboratory or imaging studies were completed on admission. ASSESSMENT: 1. Endstage renal disease requiring hemodialysis with dialysis last on Wednesday with the patient being placed on hospice for endstage renal disease. 2. Hypertension. 3. Type 2 diabetes mellitus. 4. Severe dementia. PLAN: The patient is going to be admitted for inpatient hospice under the care of [facility]. He will have orders written by hospice care. We will continue to follow the patient as needed with expected length of stay to be anywhere from 2 to 7 days with prognosis very grim. Until the patient is discharged, we will continue to assist as needed and follow as long as requested. #[id number] [facility]
[2018-08-10] MEDS ORDERED: HALOPERIDOL TAB 1 MG TAB ONE (15:27)
[2018-08-10] MEDS ORDERED: MORPHINE SULFATE INJ 10 MG/ML VIAL ONE ×2 (15:27→15:30)
[2018-08-10] MEDS ORDERED: HALOPERIDOL TAB 5MG ONE (15:32)
[2018-08-10] MEDS ORDERED: MORPHINE SULFATE INJ 10 MG/ML VIAL IM ONE (15:37)
[2018-08-10] MEDS: HALOPERIDOL TAB 1 MG TAB PO SCH ×2 (15:46→20:44)
[2018-08-10] MEDS: IV SET AND CAP CHANGE INJ INJ SCH (15:47)
[2018-08-10] MEDS ORDERED: PROMETHAZINE HCL INJ 25 MG/ML VIAL IM PRN ×2 (16:07→16:16)
[2018-08-10] MEDS ORDERED: MORPHINE SULFATE INJ 10 MG/ML VIAL IM PRN (16:20)
[2018-08-10] MEDS ORDERED: MORPHINE SULFATE INJ 10 MG/ML VIAL IV PRN (16:21)
[2018-08-10] MEDS ORDERED: SCOPOLAMINE PATCH 1.5MG 1 EA TD SCH (16:30)
[2018-08-10] MEDS: SCOPOLAMINE PATCH 1.5MG 1 EA TD SCH (16:41)
[2018-08-10] MEDS: MORPHINE SULFATE INJ 10 MG/ML VIAL IM PRN (17:21)
[2018-08-10] MEDS ORDERED: SODIUM CHLORIDE 0.9% NEB 3 ML VIAL ONE (20:45)
[2018-08-10] MEDS: FUROSEMIDE INJ 40 MG/4 ML VIAL NEB SCH (21:37)
[2018-08-10] MEDS: NON-FORMULARY MEDICATION 1 EA MIS TOP PRN (22:10)
[2018-08-10] MEDS: NON-FORMULARY MEDICATION 1 EA MIS PO PRN (23:00)
[2018-08-11] MEDS: NON-FORMULARY MEDICATION 1 EA MIS PO PRN ×3 (01:10→06:33)
[2018-08-11] MEDS: FUROSEMIDE INJ 40 MG/4 ML VIAL NEB SCH ×4 (01:11→20:41)
[2018-08-11] MEDS: NON-FORMULARY MEDICATION 1 EA MIS TOP PRN (04:30)
[2018-08-11] MEDS: MORPHINE SULFATE INJ 10 MG/ML VIAL IM PRN (07:38)
[2018-08-11] MEDS ORDERED: diphenhydrAMINE HCL 50 MG/ML VIAL ONE (08:57)
[2018-08-11] MEDS ORDERED: diphenhydrAMINE HCL 50 MG/ML VIAL IV ONE (09:00)
[2018-08-11] MEDS ORDERED: MORPHINE SULFATE INJ 10 MG/ML VIAL IV ONE (09:00)
[2018-08-11] MEDS: HALOPERIDOL TAB 1 MG TAB PO SCH ×2 (10:09→21:18)
[2018-08-11] MEDS ORDERED: LORazepam 0.5 MG TAB PO PRN (11:45)
[2018-08-11] MEDS: diphenhydrAMINE HCL 50 MG/ML VIAL IV PRN (20:13)
--- NOTE | 2018-08-11 22:51 | PN ---
DATE: 08/11/18 SUPERVISING PHYSICIAN: Perez Norton M.D. SUBJECTIVE: The patient had a very restless night and required quite a bit of sedation as he was getting very aggressive with nursing staff. This morning he is now resting comfortably. OBJECTIVE: VITAL SIGNS: Shown to be stable. GENERAL: The patient is resting comfortably but continues to be confused when awake and very agitated. LUNGS: Still remain clear, just diminished. HEART: Regular rate and rhythm. ABDOMEN: Obese but soft, non-tender. Positive bowel sounds. EXTREMITIES: Showing without any edema. NEUROLOGIC: Confused, disoriented and combative. ASSESSMENT: 1. Endstage renal disease requiring hemodialysis with dialysis last on Wednesday with the patient being placed on hospice for endstage renal disease. 2. Hypertension. 3. Type 2 diabetes mellitus. 4. Severe dementia. PLAN: Will continue to follow the patient on [facility]. I am not certain as the time frame but he has not had any dialysis now for well over a week and anticipate the patient to make a significant decline in the next 24 to 48 hours, but still uncertain. Until the patient expires secondary to his end stage renal and lack of dialysis, will continue to monitor and treat as needed. #[id number] [facility]
[2018-08-12] MEDS: FUROSEMIDE INJ 40 MG/4 ML VIAL NEB SCH ×4 (00:25→16:56)
[2018-08-12] MEDS: NON-FORMULARY MEDICATION 1 EA MIS PO PRN ×2 (00:28→06:16)
[2018-08-12] MEDS: NON-FORMULARY MEDICATION 1 EA MIS TOP PRN ×2 (00:28→06:16)
[2018-08-12] MEDS: diphenhydrAMINE HCL 50 MG/ML VIAL IV PRN ×3 (02:28→20:59)
[2018-08-12] MEDS ORDERED: MORPHINE SULFATE INJ 10 MG/ML VIAL IV PRN (07:53)
[2018-08-12] MEDS: HALOPERIDOL TAB 1 MG TAB PO SCH ×2 (08:47→21:05)
[2018-08-13] MEDS: FUROSEMIDE INJ 40 MG/4 ML VIAL NEB SCH ×4 (00:10→18:12)
[2018-08-13] MEDS: diphenhydrAMINE HCL 50 MG/ML VIAL IV PRN ×4 (04:19→22:34)
[2018-08-13] MEDS: HALOPERIDOL TAB 1 MG TAB PO SCH ×2 (08:32→21:08)
[2018-08-13] MEDS: SCOPOLAMINE PATCH 1.5MG 1 EA TD SCH (16:25)
[2018-08-13] MEDS: IV SET AND CAP CHANGE INJ INJ SCH (16:27)
[2018-08-14] MEDS: FUROSEMIDE INJ 40 MG/4 ML VIAL NEB SCH ×4 (00:27→17:28)
[2018-08-14] MEDS: diphenhydrAMINE HCL 50 MG/ML VIAL IV PRN ×3 (04:43→18:07)
[2018-08-14] MEDS: HALOPERIDOL TAB 1 MG TAB PO SCH ×2 (08:37→20:15)
[2018-08-15] MEDS: FUROSEMIDE INJ 40 MG/4 ML VIAL NEB SCH ×4 (00:18→18:00)
[2018-08-15] MEDS: diphenhydrAMINE HCL 50 MG/ML VIAL IV PRN ×4 (00:19→18:14)
[2018-08-15] MEDS: HALOPERIDOL TAB 1 MG TAB PO SCH ×2 (09:19→21:49)
[2018-08-15] MEDS: HALOPERIDOL 2 MG/ML TOP PRN ×2 (10:17→15:30)
[2018-08-15] MEDS: HYDROMORPHONE 10 MG/ML PO PRN (10:18)
[2018-08-15] MEDS: SODIUM CHLORIDE 0.9% (FLUSH) 10 ML SYG IV PRN ×2 (12:07→18:14)
[2018-08-16] MEDS: FUROSEMIDE INJ 40 MG/4 ML VIAL NEB SCH ×4 (00:35→18:56)
[2018-08-16] MEDS: diphenhydrAMINE HCL 50 MG/ML VIAL IV PRN ×4 (00:38→18:25)
[2018-08-16] MEDS: SODIUM CHLORIDE 0.9% (FLUSH) 10 ML SYG IV PRN (00:39)
[2018-08-16] MEDS: HALOPERIDOL TAB 1 MG TAB PO SCH ×2 (09:07→21:00)
[2018-08-16] MEDS: PROMETHAZINE SUPP 25 MG SUP PR SCH ×2 (15:07→22:25)
[2018-08-16] MEDS: SCOPOLAMINE PATCH 1.5MG 1 EA TD SCH (18:25)
[2018-08-16] MEDS: IV SET AND CAP CHANGE INJ INJ SCH (18:25)
[2018-08-16] MEDS: DIAZEPAM 10 MG PR SCH (21:00)
[2018-08-17] MEDS: FUROSEMIDE INJ 40 MG/4 ML VIAL NEB SCH ×4 (00:42→18:07)
[2018-08-17] MEDS: PROMETHAZINE SUPP 25 MG SUP PR SCH ×3 (06:01→22:17)
[2018-08-17] MEDS: HALOPERIDOL TAB 1 MG TAB PO SCH ×2 (07:22→21:04)
[2018-08-17] MEDS: DIAZEPAM 10 MG PR SCH ×2 (08:46→21:04)
[2018-08-17] MEDS: diphenhydrAMINE HCL 50 MG/ML VIAL IV PRN ×3 (08:46→23:35)
[2018-08-17] MEDS: HALOPERIDOL 2 MG/ML TOP PRN (21:04)
[2018-08-17] MEDS: HYDROMORPHONE 10 MG/ML PO PRN ×2 (21:13→23:35)
--- NOTE | 2018-08-18 00:07 | PN ---
DATE: 08/17/18 SUPERVISING PHYSICIAN: Bora Humphries M.D. SUBJECTIVE: The patient continues to be under care and comfort. This morning he is resting comfortably with no acute distress noted. OBJECTIVE: VITAL SIGNS: Continues to show to be fairly stable, but he is showing to be afebrile now with a temperature of 100.9, pulse 105, blood pressure 128/83, satting 93% on room air. CHEST: Lung sounds are diminished with no appreciable rhonchi or rales. HEART: Regular rate and rhythm. ABDOMEN: Obese but soft, non-tender. EXTREMITIES: 2+ edema bilaterally. NEUROLOGIC: He remains alert and comfortable. ASSESSMENT: 1. Endstage renal disease on hospice care for care and comfort measures. 2. Hypertension. 3. Type 2 diabetes mellitus. 4. Severe dementia. PLAN: Will continue to follow the patient while he is on hospice care and provide any assistance as needed. Will continue to monitor the patient and anticipate that his prognosis is worsening as he is now starting to show to be febrile and has now been off dialysis well over 2 weeks. Until the patient expires or Mark decides to discharge to go home on hospice, will continue to follow the patient as needed. [id number] [facility]
[2018-08-18] MEDS: FUROSEMIDE INJ 40 MG/4 ML VIAL NEB SCH ×4 (00:19→18:09)
[2018-08-18] MEDS: HYDROMORPHONE 10 MG/ML PO PRN ×8 (01:54→20:05)
[2018-08-18] MEDS: HALOPERIDOL 2 MG/ML TOP PRN ×4 (01:55→14:49)
[2018-08-18] MEDS: diphenhydrAMINE HCL 50 MG/ML VIAL IV PRN ×3 (05:45→18:08)
[2018-08-18] MEDS: PROMETHAZINE SUPP 25 MG SUP PR SCH ×3 (05:46→21:37)
[2018-08-18] MEDS: HALOPERIDOL TAB 1 MG TAB PO SCH ×2 (08:06→20:55)
[2018-08-18] MEDS: DIAZEPAM 10 MG PR SCH ×2 (08:07→20:59)
[2018-08-18] MEDS: ATROPINE 1% OPHTH SOL 1 DROP DROPS SL PRN ×3 (08:20→18:08)
[2018-08-19] MEDS: FUROSEMIDE INJ 40 MG/4 ML VIAL NEB SCH ×4 (00:06→18:05)
[2018-08-19] MEDS: diphenhydrAMINE HCL 50 MG/ML VIAL IV PRN ×3 (01:33→15:03)
[2018-08-19] MEDS: HYDROMORPHONE 10 MG/ML PO PRN ×5 (04:34→15:04)
[2018-08-19] MEDS: HALOPERIDOL 2 MG/ML TOP PRN ×4 (04:39→20:42)
[2018-08-19] MEDS: ATROPINE 1% OPHTH SOL 1 DROP DROPS SL PRN ×4 (04:41→15:04)
[2018-08-19] MEDS: PROMETHAZINE SUPP 25 MG SUP PR SCH ×3 (05:40→22:01)
[2018-08-19] MEDS: HALOPERIDOL TAB 1 MG TAB PO SCH ×2 (08:26→20:32)
[2018-08-19] MEDS: DIAZEPAM 10 MG PR SCH ×2 (08:27→20:33)
[2018-08-19] MEDS: IV SET AND CAP CHANGE INJ INJ SCH (15:04)
[2018-08-19] MEDS: SCOPOLAMINE PATCH 1.5MG 1 EA TD SCH (15:36)
[2018-08-20] MEDS: FUROSEMIDE INJ 40 MG/4 ML VIAL NEB SCH (00:16)
[2018-08-20 00:25] VITALS: BP 83/52; TEMP 100; O2SAT 87
--- NOTE | 2018-09-04 21:15 | DS ---
SUPERVISING PHYSICIAN: Narayan Mcgee M.D. ADMISSION DIAGNOSIS: 1. Endstage renal disease requiring hemodialysis with dialysis last on Wednesday with the patient being placed on hospice for endstage renal disease. 2. Hypertension. 3. Type 2 diabetes mellitus. 4. Severe dementia. FINAL DIAGNOSIS: 1. Cardiopulmonary arrest secondary to end stage renal disease. 2. History of hypertension. 3. History of type 2 diabetes mellitus. 4. History of severe dementia. REASON FOR HOSPITALIZATION: Mr. Pitts is a 78-year-old male patient who initially presented to [facility] on 07/31/18 after he had a same- level fall and had some agitation, dementia and endstage renal disease. He was started on dialysis. He progressed over the hospitalization and was started on dialysis with a temporary dialysis catheter and scheduled on Wednesday//Wednesday. He also had a non-ST elevated myocardial infarction which they feel like caused his fall and worsening of his dementia resulting in agitation. Due to his health and past medical history, cardiology suggested medical treatment only. Last Wednesday, he had his last dialysis, but became agitated over the weekend and pulled out all his IV access and catheter for dialysis. The patient's family decided today that due to the patient's worsening agitation and poor prognosis, the best course of care for the patient is palliative and to put him on inpatient hospice care given that he had not had dialysis since last Wednesday. He was accepted for inpatient hospice and transferred via ambulance from [facility] to [facility] for hospice inpatient care. His history and physical are obtained from past hospitalization records as the patient is very confused and no family is available at time of admission. LABORATORY STUDIES: No laboratory and no radiology were completed. HOSPITAL COURSE: Mr. Pitts was admitted to hospice inpatient care on 08/10/18 for end stage renal disease under the care of [facility]. He was started on care and comfort measures. His prognosis at time of discharge was grim with not unexpected. He was provided very good care and was kept comfortable up until his date of expiration with the patient having family members at bedside. PLAN: Mr. Pitts on the morning of 08/20/18 and was pronounced by [facility]. His prognosis at time of admission was grim will not unexpected. [facility] #[id number]
== END 2018-08-20 05:10 | disposition expired | DRG 951 ==
LOC: MS 14:35
PROVIDERS: ADMIT Nurse Practitioner Family; ATTEND Nurse Practitioner Family
DX: Z51.5 Encounter for palliative care (principal); N18.6 End stage renal disease; I13.2 Hypertensive heart and chronic kidney disease with heart failure and with stage 5 chronic kidney disease, or end stage renal disease; F03.90 Unspecified dementia, unspecified severity, without behavioral disturbance, psychotic disturbance, mood disturbance, and anxiety; I25.2 Old myocardial infarction; I50.9 Heart failure, unspecified; E11.22 Type 2 diabetes mellitus with diabetic chronic kidney disease; E11.42 Type 2 diabetes mellitus with diabetic polyneuropathy; N40.0 Benign prostatic hyperplasia without lower urinary tract symptoms; M1A.9XX0 Chronic gout, unspecified, without tophus (tophi); I46.8 Cardiac arrest due to other underlying condition; Z66 Do not resuscitate